=== PATIENT | female | born 1990 ===

== ENCOUNTER 2024-12-14 06:00 | Day surgery (SDC) | payer OTHER ==
[2024-12-07 09:14] LABS: BASO % 0.5 % (0.1-1.2); EOS # 0.08 (0.04-0.54); EOS % 1.0 % (0.7-7.0); LYMPH # 2.48 (1.18-3.74); LYMPH % 29.7 % (19.3-53.1); MEAN PLATELET VOLUME 10.70 fl (9.4-12.4); MONO # 0.52 (0.24-0.82); MONO % 6.2 % (4.7-12.5); NEUT # 5.20 (1.56-6.13); NEUT % 62.4 % (34.0-71.1); RED CELL DISTRIBUTION WIDTH 14.2 % (11.6-14.4)
[2024-12-07 09:15] LABS: URINE APPEARANCE Clear; URINE BILIRRUBIN Negative (NEGATIVE); URINE BLOOD Negative; URINE COLOR Yellow; URINE GLUCOSE Negative (NEGATIVE); URINE KETONE Negative (NEGATIVE); URINE LEUKOCYTE Trace; URINE NITRATE Negative; URINE PROTEIN Negative (NEGATIVE); URINE UROBILINOGEN 0.2 E.U./dl
[2024-12-07 09:19] LABS: URINE BACTERIA 598.7 uL (0.0-1933); URINE EPITHELIAL CELLS 22.5 uL (0.0-38.8); URINE RBC 7.0 uL (0.0-20.8); URINE WBC 20.7 uL (0.0-23.2)
[2024-12-07 09:28] LABS: URINE CAST 0.00 uL (0.0-1.40)
[2024-12-07 09:49] LABS: INR 0.98
[2024-12-07 10:07] LABS: ALT/SGPT 45.0 U/L (12-78); AST/SGOT 114.0 U/L (15-37); BILIRUBIN TOTAL 0.59 mg/dL (0.3-1.2); BUN CREA RATIO 14.0 (7.0-25.0); CREATININE SERUM 0.81 mg/dL (0.55-1.02); GFR 80.46; GLOBULINA 3.9 G/DL (2.4-3.5); GLUCOSE FASTING 98.0 mg/dL (65-100); OSMOLALITY SERUM 279.0 MOSM/KG (275-295); TSH 0.665 uIU/mL (0.358-3.74)
[2024-12-14] MEDS ORDERED: CLINDAMYCIN PHOSPHATE 150 MG/ML (900mg) ONE (07:13)
[2024-12-14] MEDS ORDERED: POVIDONE-IODINE 118 ML BOTT TOP ONE (07:17)
[2024-12-14] MEDS ORDERED: CHLORHEXIDINE GLUCONATE 120 ML BOTTLE TOP ONE (07:17)
[2024-12-14] MEDS ORDERED: PROMETHAZINE HCL 50 MG/ML AMPUL IM ONE (09:45)
[2024-12-14] MEDS ORDERED: NAPR500T14 PO (09:47)
[2024-12-14] MEDS ORDERED: MONDOXYNE NL100 MG PO (09:47)
[2024-12-14] MEDS ORDERED: ONDANSETRON HCL 2 MG/ML VIAL ONE (12:18)
== END 2024-12-14 12:55 | disposition home or self-care (01) ==
LOC: CIR.AMB 06:00
PROVIDERS: ATTEND Obstetrics & Gynecology
DX: D25.0 Submucous leiomyoma of uterus (principal); N84.0 Polyp of corpus uteri; N92.1 Excessive and frequent menstruation with irregular cycle